=== PATIENT | male | born 1945 | race Caucasian/White ===

== ENCOUNTER 2024-04-29 12:29 | Emergency (ER) | payer MEDICARE, SELFPAY ==
--- NOTE | ~2024-04-29 | XR_ITS ---
EXAMINATION: XR LUMBOSACRAL SPINE CLINICAL INFORMATION: Low back pain COMPARISON: None available. TECHNIQUE: Three views of the lumbosacral spine. FINDINGS: Spondylitic change seen at the lumbosacral junction with what appears to be a chronic compression deformity T11. Anterior spurring seen throughout the lumbar spine and there is advanced disc space narrowing L5-S1. Moderate facet degenerative change noted L4-S1. No fracture or destructive process. XR/XR lumbar spine 2-3V IMPRESSION: Multilevel degenerative changes observed but no acute findings.
--- NOTE | ~2024-04-29 | XR_ITS ---
EXAMINATION: XR HIP, RIGHT CLINICAL INFORMATION: Right-sided hip pain COMPARISON: None available. TECHNIQUE: Two views of the right hip. FINDINGS: No fracture, dislocation or destructive process. No erosive change. Mild superior joint space narrowing noted. Vascular calcifications are observed. There is moderate to advanced degenerative change incidentally seen in the left hip, particularly the superior joint space. There is degenerative change in the lower lumbar spine and overlying the right and left SI joint. XR/XR hip RT w PEL1V IMPRESSION: Degenerative changes are seen in the hips left greater than right. No fracture or acute findings.
[2024-04-29 12:36] VITALS: BP 136/88; BP 164/83; PULSE 81; PULSE 93; RESP 18; TEMP 37.2; O2SAT 97; O2SAT 98; BMI 35.5
--- NOTE | 2024-04-29 12:42 | ED_ITS ---
HPI - General Adult General Chief complaint: Back Pain/Injury Stated complaint: RLE PAIN,H/O SCIATICA PER EMS Time Seen by Provider: 04/29/24 12:41 Source: patient Mode of arrival: EMS Limitations: no limitations History of Present Illness ED Provider: Florence Dueñas PA-C HPI narrative: 78-year-old male with history of sciatica presents for evaluation of right-sided low back pain radiating down the right thigh since last night. Patient was walking up the stairs when he began feeling a shooting pain from his right low back down his right thigh. Denies injury. Pain is so bad he cannot walk and could not sleep last night so he came here. Currently takes a muscle relaxer for his chronic sciatica, states that tylenol, ibuprofen, gabapentin have not worked for him in the past. Denies bowel or bladder incontinence. Denies numbness or tingling. MD complaint: Right hip/thigh pain Onset (ago): hour(s) Location: back and right Radiation: distal (thigh) Quality: sharp Pain Consistency: constant Relieving factors: none Exacerbating factors: movement Associated symptoms: denies other symptoms Treatments prior to arrival: none Related Data Home Medications ?Medication ?Instructions ?Recorded ?Confirmed atorvastatin 10 mg tablet 10 mg PO DAILY 04/29/24 04/29/24 lisinopril 5 mg tablet 5 mg PO DAILY 04/29/24 04/29/24 mirtazapine 15 mg tablet 15 mg PO BEDTIME 04/29/24 04/29/24 Allergies Allergy/AdvReac Type Severity Reaction Status Date / Time Fish Containing Products Allergy Severe ANAPHYLAXIS Verified 04/29/24 12:42 TO SWORDFISH shrimp Allergy Severe FACIAL Verified 04/29/24 12:42 SWELLING Penicillins [PENICILLINS] Allergy Unknown UNKNOWN Verified 04/29/24 12:42 Review of Systems 2 Constitutional: Constitutional: Reports no additional constitutional complaints, Denies chills, Denies fever(s) and Denies night sweats Eyes: Eyes: Reports no additional eye complaints, Denies blurry vision, Denies change in vision, Denies diplopia, Denies eye discharge, Denies loss of vision and Denies eye pain ENT: Denies dizziness Cardiovascular: Cardiovascular: Reports no additional cardiovascular complaints, Denies chest pain, Denies lightheadedness, Denies Loss of Consciousness and Denies dyspnea Respiratory: Respiratory: Reports no additional respiratory complaints and Denies dyspnea Gastrointestinal: Gastrointestinal: Reports no additional gastrointestinal complaints, Denies abdominal pain, Denies melena, Denies hematochezia, Denies change in bowel habits and Denies change in stool character Genitourinary: Genitourinary: Reports no additional male genitourinary complaints, Denies hematuria, Denies oliguria, Denies difficulty urinating, Denies dysuria, Denies urinary frequency, Denies urinary hesitancy, Denies urinary incontinence and Denies urinary urgency Musculoskeletal: Musculoskeletal: Reports as per HPI, Denies numbness, Reports radiating pain into limb and Denies tingling Neurologic: Denies dizziness, Denies loss of vision, Denies numbness and Denies tingling Psychiatric: Psychiatric: Reports no additional psychiatric complaints Endocrine: Endocrine: Reports no additional endocrine complaints Hematologic/Lymphatic: Hematologic/Lymphatic: Reports no additional hematologic/lymphatic complaints Allergic/Immunologic: Allergic/Immunologic: Reports no additional allergic/immunologic complaints PMFSH Past Medical History Attestation statement: The following information was validated with the patient. Source: old records reviewed and nursing notes reviewed Social History Social History Advance Directives: No Advance Directives Information Provided: Yes Do you have a plan to hurt others: No Plan Physical Exam ED Vital Signs: Vital Signs - 24 hr 04/29/24 16:57 04/29/24 19:17 04/29/24 19:40 Temperature 98.6 F 98.7 F 98.8 F Pulse Rate 64 81 88 Respiratory Rate 20 20 19 Blood Pressure 131/86 157/85 H 146/82 H Pulse Oximetry 98 95 95 Oxygen Delivery Method Room Air Room Air Room Air 04/30/24 06:20 04/30/24 09:01 Temperature 98.6 F Pulse Rate 68 Respiratory Rate 16 Blood Pressure 96/51 L 127/89 Pulse Oximetry 95 Oxygen Delivery Method Room Air BMI result Body Mass Index 35.5 Const General: cooperative, no acute distress, alert and awake Nutritional Appearance: well nourished Orientation/consciousness: patient oriented x3 Limitations: no limitations HENMT Head: Yes normal to inspection and Yes atraumatic Ears: hearing grossly normal bilaterally and external ears normal General nose exam: Normal external nose present, no nasal discharge noted and no epistaxis Face and sinus: Yes normal facial exam, No abrasion and No laceration Mouth: Normal oral and palatal mucosa present, no drooling and no muffled voice Eyes General: appearance normal, both eyes and all related structures Periorbital: periorbital findings normal Eyelids: Yes eyelids normal Conjunctivae: conjunctivae normal Pupils: Equal, round and reactive pupils present EOM: EOMs intact bilaterally Neck Neck: Yes normal visual inspection, Yes full ROM and Yes no lymphadenopathy Chest Chest palpation & inspection: normal inspection of the chest Resp Effort & Inspection: normal respiratory effort and able to speak in complete sentences GI Inspection: Yes normal to inspection General: Yes no CVA tenderness Back/Spine/Pelvis Other: pain with straightening of back and ambulation Back: no CVA tenderness Cervical Spine: normal cervical lordosis and cervical ROM normal Thoracic/Lumbar Spine: thoraco-lumbar ROM normal Neuro General: patient oriented x3 and moves all extremities Cranial nerves: Yes Equal, round and reactive pupils present Cognition (Neuro): normal cognition Motor exam (neuro): 5/5 motor strength present throughout Sensory Exam: Normal double simultaneous stimulation for sensation Coordination: [id number] test normal Extrem General: Yes normal to inspection, Yes full ROM and Yes capillary refill normal Psych Appearance: grossly normal Mental Status: mental status grossly normal Affect: normal affect Attitude: cooperative Thought process: Normal thought process present Thought content: Normal thought content present Insight: Good insight present (Psych) Course Course Course Narrative: 04/30/2024 0630 ---> Physician observation continues. Patient continues to be followed by case management and awaits physical therapy evaluation. 04/30/2024 1255 ---> Case management spoke with the patient. Together, they decided that the patient will go home and follow up with pain management and outpatient physical therapy. I will provide the patient with a pain management referral and his PCP will have to provide a PT referral. Observation care revealed the the patient does not meet medical necessity for hospitalization. Final disposition discussed with the patient [and the patient's] who verbalized understanding and agreement. Patient completed observation care at [time], total time spent in observation care was 21 hours and 6 minutes. Medications Administered Generic Name Dose Route Start Last Admin Trade Name Freq PRN Reason Stop Dose Admin Atorvastatin Calcium 10 mg 04/30/24 09:00 04/30/24 09:02 Atorvastatin Calcium 10 Mg Tablet PO 10 mg DAILY DEVANG Administration Lisinopril 5 mg 04/30/24 09:00 04/30/24 09:01 Lisinopril 5 Mg Tablet PO 5 mg DAILY DEVANG Administration Protocol Mirtazapine 15 mg 04/29/24 21:00 04/29/24 19:48 Mirtazapine 15 Mg Tablet PO 15 mg BEDTIME DEVANG Administration Discontinued Medications Generic Name Dose Route Start Last Admin Trade Name Hetal RANDHAWA Reason Stop Dose Admin Diazepam 2.5 mg 04/29/24 12:51 04/29/24 14:49 Diazepam 10 Mg/2 Ml Cartridge IVPUSH 04/29/24 12:52 2.5 mg STAT STA Administration Ketorolac Tromethamine 15 mg 04/29/24 12:52 04/29/24 14:49 Ketorolac Tromethamine 15 Mg/Ml Vial IVPUSH 04/29/24 12:53 15 mg ONCE ONE Administration Methylprednisolone Sodium Succinate 60 mg 04/29/24 15:35 04/29/24 15:39 Methylprednisolone Sod Succ 125 Mg/2 Ml Vial IVPUSH 04/29/24 15:36 60 mg ONCE ONE Administration Medical Decision Making Medical Decision Making MDM Narrative: Patient is a 78 year old assigned male at with a history of chronic sciatic back pain presenting to the emergency department today with an episode of acute on chronic back pain. Patient's physical exam was as noted in the physical exam portion of this note. Patient's blood work was unremarkable. Patient's low back x-ray showed no acute process but did show degenerative changes. I explained my physical exam findings as well as all test results to the patient. I answered all questions asked by the patient. Patient received IV pain medication however, it did not help him be able to ambulate. Given the patient lives on a second story and is having trouble ambulating, will place a case management consult to help coordinate a safe discharge plan. Patient verbalized understanding and agreement with this plan. Differential Diagnosis Differential Diagnoses: The differential diagnosis associated with the presentation includes Chronic back pain Acute on chronic back pain Right sided sciatica Admission/Observation Consideration of admission/observation: Escalation of care including admission/observation considered Patient would have been admitted to the hospital had his work up had any findings where hospital admission was appropriate and his clinical presentation warranted hospital admission. Lab Data [facility] Lab Attestation statement: I reviewed the patient's lab results. My interpretation of these results are in the MDM Rationale portion of this note. 04/29/24 13:11 04/29/24 13:11 Labs: Lab Results 04/29/24 Range/Units 13:11 WBC 4.8 (4.8-10.8) X10*3/uL RBC 4.58 L (4.60-5.80) X10*6/uL Hgb 13.6 L (14.0-18.0) g/dl Hct 40.2 L (42.0-52.0) % MCV 87.8 (80.0-98.0) fL MCH 29.7 (27.0-33.0) pg MCHC 33.8 (31.0-36.0) g/dl RDW 13.1 (11.0-16.0) % Plt Count 189 (160-400) X10*3/uL MPV 9.2 L (9.4-12.4) fL Immature Gran % (Auto) 0.2 (0.0-0.4) % Neut % (Auto) 61.4 (45-73) % Lymph % (Auto) 23.3 (20-40) % Swisher % (Auto) 11.2 H (2-11) % Eos % (Auto) 3.3 (0-4) % Baso % (Auto) 0.6 (0-2) % Lymph # (Auto) 1.1 L (1.2-4.9) X10*3/uL Swisher # (Auto) 0.5 (0.1-1.2) X10*3/uL Eos # (Auto) 0.2 (0.0-0.4) X10*3/uL Baso # (Auto) 0.0 (0.0-0.2) X10*3/uL Abs Immat Gran (auto) 0.01 (0.00-0.03) X10*3/uL Absolute Neuts (auto) 3.0 (2.0-8.3) x10*3/uL Absolute Nucleated RBC 0.000 (0.0-0.012) X10*3/uL Nucleated RBC % (auto) 0.0 (0.0-0.2) /100WBC Sodium 139 (135-145) mmol/L Potassium 4.2 (3.3-5.1) mmol/L Chloride 106 (96-108) mmol/L Carbon Dioxide 25 (22-29) mmol/L Anion Gap 12 (12-20) BUN 8 L (9-16) mg/dL Creatinine 0.83 (0.5-1.4) mg/dL Estim Creat Clear Calc 82.3 Estimated GFR > 60 Random Glucose 97 (60-115) mg/dL Calcium 9.0 (8.4-10.2) mg/dL Total Bilirubin 0.7 (0.0-1.0) mg/dL AST 18 (5-37) U/L ALT 34 (0-40) U/L Alkaline Phosphatase 66 (39-117) U/L Total Protein 6.5 (6.5-8.0) g/dL Albumin 3.6 (3.5-5.0) g/dL Independent Interpretation I performed an independent interpretation of an: Plain X-Ray Interpretation: My interpretation is in agreement with the radiologist's impression of this imaging study. - EXAMINATION: XR LUMBOSACRAL SPINE CLINICAL INFORMATION: Low back pain COMPARISON: None available. TECHNIQUE: Three views of the lumbosacral spine. FINDINGS: Spondylitic change seen at the lumbosacral junction with what appears to be a chronic compression deformity T11. Anterior spurring seen throughout the lumbar spine and there is advanced disc space narrowing L5-S1. Moderate facet degenerative change noted L4-S1. No fracture or destructive process. XR/XR lumbar spine 2-3V IMPRESSION: Multilevel degenerative changes observed but no acute findings. Dictated By: Josiah Sharp MD Signed By: Electronically signed by Josiah Sharp MD 04/29/24 1449 - EXAMINATION: XR HIP, RIGHT CLINICAL INFORMATION: Right-sided hip pain COMPARISON: None available. TECHNIQUE: Two views of the right hip. FINDINGS: No fracture, dislocation or destructive process. No erosive change. Mild superior joint space narrowing noted. Vascular calcifications are observed. There is moderate to advanced degenerative change incidentally seen in the left hip, particularly the superior joint space. There is degenerative change in the lower lumbar spine and overlying the right and left SI joint. XR/XR hip RT w PEL1V IMPRESSION: Degenerative changes are seen in the hips left greater than right. No fracture or acute findings. Dictated By: Josiah Sharp MD Signed By: Electronically signed by Josaih Sharp MD 04/29/24 1448 Radiology Impression Discussion of test interpretation with radiology: I have reviewed the radiologist's reading. Independent Historian Clinical information obtained from an independent historian. History obtained from or confirmed by: EMS (EMS provided additional history and confirmed the history provided by the patient.) Critical Care Time Critical Care Time Critical Care Time: Yes Total Critical Care Time: 34 Attestation: I spent 34 minutes of Critical Care Time with this patient. This does not include time spent on separately reported billable procedures. Discharge Plan Discharge Clinical Impression: Sciatica, Difficulty in walking Patient Disposition: Still a Patient Prescriptions: No Action atorvastatin 10 mg tablet 10 mg PO DAILY lisinopril 5 mg tablet 5 mg PO DAILY mirtazapine 15 mg tablet 15 mg PO BEDTIME Print Language: Tamazight
[2024-04-29 13:15] LABS: Basophils Percent Auto 0.6 % (0-2); Eosinophils Absolute Auto 0.2 X10*3/uL (0.0-0.4); Eosinophils Percent Auto 3.3 % (0-4); Hematocrit 40.2 % (42.0-52.0); Hemoglobin 13.6 g/dl (14.0-18.0); Imm Gran Abs Auto 0.01 X10*3/uL (0.00-0.03); Imm Gran Pct Auto 0.2 % (0.0-0.4); Lymphocytes Absolute Auto 1.1 X10*3/uL (1.2-4.9); Lymphocytes Percent Auto 23.3 % (20-40); MANUAL DIFF FLAG NO; Mean Corpuscular HGB Conc 33.8 g/dl (31.0-36.0); Mean Corpuscular Hemoglobin 29.7 pg (27.0-33.0); Mean Corpuscular Volume 87.8 fL (80.0-98.0); Mean Platelet Volume 9.2 fL (9.4-12.4); Monocytes Absolute Auto 0.5 X10*3/uL (0.1-1.2); Monocytes Percent Auto 11.2 % (2-11); Neutrophils Percent Auto 61.4 % (45-73); Platelet Count 189 X10*3/uL (160-400); Red Blood Count 4.58 X10*6/uL (4.60-5.80); Red Cell Distribution Width 13.1 % (11.0-16.0); White Blood Count 4.8 X10*3/uL (4.8-10.8)
[2024-04-29 13:32] LABS: Alanine Aminotransferase 34 U/L (0-40); Albumin Level 3.6 g/dL (3.5-5.0); Alkaline Phosphatase 66 U/L (39-117); Anion Gap 12 (12-20); Aspartate Amino Transferase 18 U/L (5-37); Bilirubin Total 0.7 mg/dL (0.0-1.0); Blood Urea Nitrogen 8 mg/dL (9-16); Carbon Dioxide 25 mmol/L (22-29); Chloride 106 mmol/L (96-108); Creatinine Clr Calc Pharmacy 82.3; Estimated Glomerular Filt Rate > 60; Glucose Random 97 mg/dL (60-115); Potassium 4.2 mmol/L (3.3-5.1); Sodium 139 mmol/L (135-145); Total Protein 6.5 g/dL (6.5-8.0)
[2024-04-29] MEDS: Ketorolac Tromethamine 15 MG/ML VIAL IVPUSH (14:49)
[2024-04-29] MEDS: diazePAM 10 MG/2 ML CARTRIDGE 2.5 MG IVPUSH (14:49)
[2024-04-29] MEDS: methylPREDNISolone Sod Succ 125 MG/2 ML VIAL 60 MG IVPUSH (15:39)
[2024-04-29 16:57] VITALS: BP 131/86; PULSE 64; RESP 20; TEMP 37; O2SAT 98
--- NOTE | 2024-04-29 18:53 | PC.NURSE ---
RN-RN report given to Overflow, plan to transport at 1915.
--- NOTE | 2024-04-29 18:59 | PC.NURSE ---
med rec completed, provider notified.
[2024-04-29 19:17] VITALS: BP 157/85; PULSE 81; RESP 20; TEMP 37.1; O2SAT 95
[2024-04-29 19:40] VITALS: BP 146/82; PULSE 88; RESP 19; TEMP 37.1; O2SAT 95
[2024-04-29] MEDS: Mirtazapine 15 MG TABLET PO (19:48)
--- NOTE | 2024-04-29 21:19 | PC.NURSE ---
Patient transferred from main ed to overflow bed 6. Patient is alert and oriented x4, reports some discomfort in right lower back and right hip, medicated for pain prior to transfer. Patient able to move all extremities. Vital signs stable, lungs clear. No additional complaints at this time, call banegas within reach.
--- NOTE | 2024-04-29 21:44 | MHC.CM.ED ---
CM met with patient at the request of Florence GRAY. Pt has a history of Sciatica and developed severe pain last night. Patient states he cannot walk without pain. Pt lives with his son. Does not use any DME/services. PCP was verified. Pt still drives and is independent. Pt is interested in pain management referral. Pt is agreeable to PT evaluation. Pt is not agreeable to STR. Pt is agreeable to staying overnight. No referrals placed as patient is not agreeable to STR at this time. CM will follow for discharge planning. Florence GRAY aware that patient would like a pain management referral and is not intersted in STR.
[2024-04-30 06:20] VITALS: BP 96/51; PULSE 68; RESP 16; TEMP 37; O2SAT 95
--- NOTE | 2024-04-30 06:53 | PC.NURSE ---
dmitry Ax4, reports no pain, slept well through the night. no distress at this time.
[2024-04-30 09:01] VITALS: BP 127/89
[2024-04-30] MEDS: lisinopriL 5 MG TABLET PO (09:01)
[2024-04-30] MEDS: Atorvastatin Calcium 10 MG TABLET PO (09:02)
--- NOTE | 2024-04-30 13:04 | MHC.CM.ED ---
Patient remains in ER overflow. Physical therapy eval completed. Outpatient physical therapy is recommended. PCP's office will be asked to refer to outpatient physical therapy. Patient has transportation home. Tiffany ANTONIO and Florence GRAY aware. Continue to monitor for d/c needs.
[2024-04-30 14:47] VITALS: BP 125/87; PULSE 77; RESP 14; TEMP 36.8
== END 2024-04-30 14:49 | disposition home or self-care (01) ==
PROVIDERS: Physician Assistant Medical; Emergency Provider Emergency Medicine; PCP Internal Medicine
DX: M54.30 Sciatica, unspecified side (principal); R26.81 Unsteadiness on feet; M54.50 Low back pain, unspecified; M25.551 Pain in right hip
CPT/HCPCS: 36415; 72100; 73502; 80053; 85025; 96374; 96375; 97161; 99284; J1885; J2919; J3360

== ENCOUNTER 2024-05-06 11:25 | Emergency (ER) | payer MEDICARE, SELFPAY ==
[2024-05-06 11:45] VITALS: BP 114/90; BP 141/91; PULSE 81; PULSE 92; RESP 20; TEMP 36.3; O2SAT 95; O2SAT 98; BMI 33.0
--- NOTE | 2024-05-06 11:49 | ED.GENADULT ---
HPI - General Adult General Chief complaint: General Medical Stated complaint: SCIATIC PAIN Time Seen by Provider: 05/06/24 13:35 Source: patient and EMS Mode of arrival: EMS Limitations: no limitations History of Present Illness ED Provider: Florence Dueñas PA-C HPI narrative: Patient is a 78 year old assigned male at with a history of sciatica presenting to the emergency department today with right sided low back pain. Patient states that he was seen here on 04/29/2024 for the same issue and had been doing the exercises like he was supposed to when he got out of bed and began another flare. Patient states that he has not gotten ahold of the pain specialist as directed. Patient denies any dizziness, lightheadedness, abdominal pain, nausea, vomiting, fever, chills, blurry vision, double vision, loss of vision, chest pain, difficulty breathing, shortness of breath, night sweats, pain with urination, increased urinary frequency, increased urinary urgency, blood in his urine or stool, syncope or a near syncopal episode, recent trauma or falls, bowel incontinence, bladder incontinence, or any other complaints at this time. Onset (ago): hour(s) Location: back Radiation: extremity and distal Severity: mild Severity scale (1-10): 4 Quality: aching and dull Pain Consistency: constant Relieving factors: none Exacerbating factors: movement Associated symptoms: denies other symptoms Treatments prior to arrival: none Related Data Home Medications ?Medication ?Instructions ?Recorded ?Confirmed atorvastatin 10 mg tablet 10 mg PO DAILY 04/29/24 04/29/24 lisinopril 5 mg tablet 5 mg PO DAILY 04/29/24 04/29/24 mirtazapine 15 mg tablet 15 mg PO BEDTIME 04/29/24 04/29/24 Previous Rx's ?Medication ?Instructions ?Recorded cyclobenzaprine 5 mg tablet 5 mg PO TID PRN pain 7 days #21 05/06/24 tabs naproxen 500 mg tablet 500 mg PO BID 7 days #14 tabs 05/06/24 Allergies Allergy/AdvReac Type Severity Reaction Status Date / Time Fish Containing Products Allergy Severe ANAPHYLAXIS Verified 05/06/24 11:49 TO SWORDFISH shrimp Allergy Severe FACIAL Verified 05/06/24 11:49 SWELLING Penicillins [PENICILLINS] Allergy Unknown UNKNOWN Verified 05/06/24 11:49 Review of Systems Constitutional: Constitutional: Reports no additional constitutional complaints, Denies chills, Denies fever(s) and Denies night sweats Eyes: Eyes: Reports no additional eye complaints, Denies blurry vision, Denies change in vision, Denies diplopia, Denies eye discharge, Denies loss of vision and Denies eye pain ENT: Denies dizziness Cardiovascular: Cardiovascular: Reports no additional cardiovascular complaints, Denies chest pain, Denies lightheadedness, Denies Loss of Consciousness and Denies dyspnea Respiratory: Respiratory: Reports no additional respiratory complaints and Denies dyspnea Gastrointestinal: Gastrointestinal: Reports no additional gastrointestinal complaints, Denies abdominal pain, Denies melena, Denies hematochezia, Denies change in bowel habits and Denies change in stool character Genitourinary: Genitourinary: Reports no additional male genitourinary complaints, Denies hematuria, Denies oliguria, Denies difficulty urinating, Denies dysuria, Denies urinary frequency, Denies urinary hesitancy, Denies urinary incontinence and Denies urinary urgency Musculoskeletal: Musculoskeletal: Reports no additional musculoskeletal complaints, Reports back pain, Denies numbness and Denies tingling Neurologic: Denies dizziness, Denies loss of vision, Denies numbness and Denies tingling Psychiatric: Psychiatric: Reports no additional psychiatric complaints Endocrine: Endocrine: Reports no additional endocrine complaints Hematologic/Lymphatic: Hematologic/Lymphatic: Reports no additional hematologic/lymphatic complaints Allergic/Immunologic: Allergic/Immunologic: Reports no additional allergic/immunologic complaints PMFSH Past Medical History Attestation statement: The following information was validated with the patient. Source: old records reviewed and nursing notes reviewed Social History Social History Advance Directives: No Advance Directives Information Provided: No Physical Exam ED Vital Signs: Vital Signs - 24 hr 05/06/24 11:45 05/06/24 14:23 Temperature 97.4 F 97.8 F Pulse Rate 81 78 Respiratory Rate 20 18 Blood Pressure 141/91 H 153/90 H Pulse Oximetry 95 98 Oxygen Delivery Method Room Air Room Air BMI result Body Mass Index 33.0 Const General: cooperative, no acute distress, alert and awake Nutritional Appearance: well nourished Orientation/consciousness: patient oriented x3 Limitations: no limitations HENMT Head: Yes normal to inspection and Yes atraumatic Ears: hearing grossly normal bilaterally and external ears normal General nose exam: Normal external nose present, no nasal discharge noted and no epistaxis Face and sinus: Yes normal facial exam, No abrasion and No laceration Mouth: Normal oral and palatal mucosa present, no drooling and no muffled voice Eyes General: appearance normal, both eyes and all related structures Periorbital: periorbital findings normal Eyelids: Yes eyelids normal Conjunctivae: conjunctivae normal Pupils: Equal, round and reactive pupils present EOM: EOMs intact bilaterally Neck Neck: Yes normal visual inspection, Yes full ROM and Yes no lymphadenopathy Chest Chest palpation & inspection: normal inspection of the chest Resp Effort & Inspection: normal respiratory effort and able to speak in complete sentences GI Inspection: Yes normal to inspection General: Yes no CVA tenderness Back/Spine/Pelvis Back: no CVA tenderness Cervical Spine: normal cervical lordosis and cervical ROM normal Thoracic/Lumbar Spine: thoracic and lumbar spine normal to inspection and thoraco-lumbar ROM normal Pelvis: no pain with anterior-posterior compression Neuro General: patient oriented x3 and moves all extremities Cranial nerves: Yes Equal, round and reactive pupils present Cognition (Neuro): normal cognition Extrem General: Yes normal to inspection, Yes full ROM and Yes capillary refill normal Psych Appearance: grossly normal Mental Status: mental status grossly normal Affect: normal affect Attitude: cooperative Thought process: Normal thought process present Thought content: Normal thought content present Insight: Good insight present (Psych) Course Course Course Narrative: This is an RME done by MARINA Gutiérrez: Additional HPI, ROS, PE not included below will be deferred to primary provider. 78 year old male presents w/ right sided aching & shooting pain lower back pain started on 04/30/2024 has history of sciatica but has never been this bad. Reports its a shotting pain down his entire RLE. No saddle anesthesias,numbness, tingling, urine/bowel incontinence/ retention. Appearance: Alert.? Oriented X3.? No acute cardiopulmonary distress distress.? Head: Normocephalic, atraumatic, no step-offs or deformities Neck: Normal inspection.? Neck supple.? CVS: Pulses normal.? Respiratory: No respiratory distress.? Abdomen: Soft and nontender.? Skin: ? Normal skin color. Extremities: 5/5 strength to bilateral upper and lower extremities Back: Painful rom to back, in wheelchair becuase he feels like he cant walk Neuro: Oriented X 3.? No motor deficit.? No sensory deficit. No saddle anesthesias Medications Administered Discontinued Medications Generic Name Dose Route Start Last Admin Trade Name Hetal PRN Reason Stop Dose Admin Cyclobenzaprine HCl 5 mg 05/06/24 14:03 05/06/24 14:22 Cyclobenzaprine Hcl 5 Mg Tablet PO 05/06/24 14:04 5 mg ONCE ONE Administration Ketorolac Tromethamine 15 mg 05/06/24 14:03 05/06/24 14:22 Ketorolac Tromethamine 15 Mg/Ml Vial IM 05/06/24 14:04 15 mg ONCE ONE Administration Lidocaine 1 patch 05/06/24 11:49 05/06/24 13:58 Lidocaine 4 % Patch Adh..Patch TRANSDERMA 05/06/24 11:50 1 patch ONCE ONE Administration Protocol Methylprednisolone Sodium Succinate 60 mg 05/06/24 14:03 05/06/24 14:22 Methylprednisolone Sod Succ 125 Mg/2 Ml Vial IM 05/06/24 14:04 60 mg ONCE ONE Administration Medical Decision Making Medical Decision Making MDM Narrative: Patient is a 78 year old assigned male at with a history of sciatica presenting to the emergency department today with right sided low back pain. Patient's physical exam was unremarkable. I explained my physical exam findings to the patient. I answered all questions asked by the patient. Patient received pain medication which he stated helped his symptoms. I stressed the importance of the patient taking his medication as directed (either prescribed or as the over the counter packaging recommends). I stressed the importance of the patient following up with his primary care provider and a pain specialist. I stressed the importance of the patient returning to the emergency department immediately if his symptoms were to worsen or if he were to develop any dizziness, shortness of breath, difficulty breathing, chest pain, blurry vision, loss of vision, nausea, vomiting, abdominal pain, fever, chills, back pain, or any other complaints. Patient verbalized agreement and understanding with this treatment plan and discharge. Differential Diagnosis Differential Diagnoses: The differential diagnosis associated with the presentation includes Sciatica Acute on chronic back pain Back pain Admission/Observation Consideration of admission/observation: Escalation of care including admission/observation considered Patient would have been admitted to the hospital had his clinical presentation warranted hospital admission. Tests considered The following testing was considered but not selected: I considered obtaining a lumbar x-ray or CT scan however, the patient's current clinical presentation does not warrant it. I discussed this with the patient who verbalized understanding and agreement. Prescription Management I considered prescription management with: Pain Medication (patient prescribed pain medication) Discharge Plan Discharge Clinical Impression: Sciatica Patient Disposition: Home, Self-Care Instructions: Sciatica (ED), Lower Back Exercises (ED) Additional Instructions: Follow up with your primary care provider and a pain specialist. Return to the emergency department immediately if your symptoms worsen or if you develop any dizziness, shortness of breath, difficulty breathing, chest pain, blurry vision, loss of vision, nausea, vomiting, abdominal pain, fever, chills, back pain, or any other complaints. Prescriptions: New cyclobenzaprine 5 mg tablet 5 mg PO TID PRN (Reason: pain) 7 Days Qty: 21 0RF naproxen 500 mg tablet 500 mg PO BID 7 Days Qty: 14 0RF No Action atorvastatin 10 mg tablet 10 mg PO DAILY lisinopril 5 mg tablet 5 mg PO DAILY mirtazapine 15 mg tablet 15 mg PO BEDTIME Ref[place]: [facility] [place] [facility] [place]] (Call to establish and follow up with a pain specialist. ) Sanya Zhang MD [Primary Care Provider] - Interventions: ED Discharge Assessment Last Done: 05/06/24 14:23 Discharge Date/Time: 05/06/24 14:31 Print Language: Kyrgyz
[2024-05-06] MEDS: Lidocaine 4 % Patch ADH..PATCH 1 PATCH TRANSDERMA (13:58)
[2024-05-06] MEDS: Ketorolac Tromethamine 15 MG/ML VIAL IM (14:22)
[2024-05-06] MEDS: Cyclobenzaprine HCl 5 MG TABLET PO (14:22)
[2024-05-06] MEDS: methylPREDNISolone Sod Succ 125 MG/2 ML VIAL 60 MG IM (14:22)
[2024-05-06 14:23] VITALS: BP 153/90; PULSE 78; RESP 18; TEMP 36.6; O2SAT 98
== END 2024-05-06 14:31 | disposition home or self-care (01) ==
PROVIDERS: Emergency Provider Emergency Medicine; PCP Internal Medicine
DX: M54.30 Sciatica, unspecified side (principal); M54.50 Low back pain, unspecified; Z79.899 Other long term (current) drug therapy
CPT/HCPCS: 96372; 99283; 99284; J1885; J2919

== ENCOUNTER 2024-05-23 13:16 | Emergency (ER) | payer MEDICARE, SELFPAY ==
[2024-05-23 13:22] VITALS: BP 138/82; PULSE 88; O2SAT 96
[2024-05-23 13:28] VITALS: BP 130/53; PULSE 82; RESP 18; TEMP 36.8; O2SAT 96; BMI 35.6
[2024-05-23 15:46] VITALS: BP 145/63; PULSE 79; RESP 18; TEMP 36.8; O2SAT 98
--- NOTE | 2024-05-23 16:01 | ED.GENADULT ---
HPI - General Adult General Chief complaint: Back Pain/Injury Stated complaint: SCIATIC PAIN HARD TO WALK Time Seen by Provider: 05/23/24 13:36 Source: patient and EMS Mode of arrival: EMS Limitations: no limitations History of Present Illness ED Provider: DR. Ignacio HPI narrative: 78-year-old male with chronic back pain and right-sided sciatica presented with 1 week of lower back pain radiating down to the right thigh, no urinary incontinence, no stool incontinence, no weakness, no numbness reported by the patient. Patient also woke up this morning with painful rash on the left chest wall. Patient is unable to ambulate because of severe back pain that radiates to the right lower extremities, patient lives home alone and normally fully functional. Related Data Home Medications ?Medication ?Instructions ?Recorded ?Confirmed atorvastatin 10 mg tablet 10 mg PO DAILY 04/29/24 04/29/24 lisinopril 5 mg tablet 5 mg PO DAILY 04/29/24 04/29/24 mirtazapine 15 mg tablet 15 mg PO BEDTIME 04/29/24 04/29/24 Previous Rx's ?Medication ?Instructions ?Recorded cyclobenzaprine 5 mg tablet 5 mg PO TID PRN pain 7 days #21 05/06/24 tabs naproxen 500 mg tablet 500 mg PO BID 7 days #14 tabs 05/06/24 Allergies Allergy/AdvReac Type Severity Reaction Status Date / Time Fish Containing Products Allergy Severe ANAPHYLAXIS Verified 05/23/24 13:30 TO SWORDFISH shrimp Allergy Severe FACIAL Verified 05/06/24 11:49 SWELLING Penicillins [PENICILLINS] Allergy Unknown UNKNOWN Verified 05/06/24 11:49 Review of Systems Review of Systems: All other systems are reviewed and are negative Constitutional: Reports as per HPI and Reports no additional constitutional complaints Eyes: Reports as per HPI and Reports no additional eye complaints Reports system reviewed and no additional complaints, except as documented Cardiovascular: Reports as per HPI and Reports no additional cardiovascular complaints Respiratory: Reports as per HPI and Reports no additional respiratory complaints Gastrointestinal: Reports as per HPI and Reports no additional gastrointestinal complaints Genitourinary: Reports no additional female genitourinary complaints Musculoskeletal: Reports no additional musculoskeletal complaints Skin/Breast: Reports system reviewed and no additional complaints, except as docu Psychiatric: Reports no additional psychiatric complaints Endocrine: Reports no additional endocrine complaints Hematologic/Lymphatic: Reports no additional hematologic/lymphatic complaints Allergic/Immunologic: Reports no additional allergic/immunologic complaints Reports system reviewed and no additional complaints, except as documented and Reports Abnormal speech present [facility] Social History Social History Advance Directives: Yes Advance Directives Information Provided: No Advance Directives on File: No Physical Exam ED Vital Signs: Vital Signs - 24 hr 05/23/24 13:28 05/23/24 15:46 Temperature 98.3 F 98.3 F Pulse Rate 82 79 Respiratory Rate 18 18 Blood Pressure 130/53 L 145/63 H Pulse Oximetry 96 98 Oxygen Delivery Method Room Air Room Air BMI result Body Mass Index 35.6 Vital signs have been reviewed and appear to be correct. Blood pressure elevated. Heart rate normal. Respiratory rate normal. Temperature normal. Oxygen saturation normal. Appearance: Alert. Oriented X3. No acute distress. Head: Normal external exam. Normocephalic. Atraumatic. No Garcia signs noted. No raccoon eyes noted Eyes: PERRLA. EOMI. Conjunctiva and sclera normal. Eyelids normal. ENT: TM's Normal. Pharynx normal. Uvula midline. Moist mucous membranes. No trismus noted. No drooling noted. No muffled voice noted. Neck: Normal inspection. Neck supple. FROM. No adenopathy. Thyroid Normal. No meningeal signs. No neck mass noted. CVS: Normal heart rate and rhythm. Heart sound normal. No murmurs noted. Pulses normal throughout. Respiratory: No respiratory distress. Painless inspiration. Breath sounds normal. No wheezes/rales/rhonchi noted. Chest nontender. No accessory muscle usage noted or decreased air movement noted. Abdomen: Soft and nontender. Bowel sounds normal in all 4 quadrants. No distention noted. No organomegaly noted. No visible injury noted. Back: No CVA tenderness. Full range of motion noted. Skin: Skin warm and dry. Normal skin color. Normal skin turgor. No rashes/lesions/lacerations noted. Extremities: No lower extremity edema. Extremities exhibit normal range of motion. Extremities nontender. Neuro: Oriented X 3. Cranial nerve exam: II-XII are grossly intact No motor deficit. No sensory deficit. Reflexes normal. Course Reevaluation(s) Reevaluation #1: Back pain and right sciatica no urinary or stool incontinence. Had a back x-ray done on 04/29 showed multilevel degenerative change without acute findings. Acute shingles to the left chest wall will start the patient on Valtrex and prednisone. Time: 16:08 Reevaluation #2: severe back pain radiates to the right leg, and left chest wall shingles, the patient was evaluated by Dr. Gutierrez and Dr. Fay disagreed on admitting the patient, will continue physician observation in the ED for PT evaluation and case management with possible short-term facility. Time: 16:19 Medical Decision Making Differential Diagnosis Differential Diagnoses: The differential diagnosis associated with the presentation includes ( [place], sciatica, degenerative lumbar spine disease, electrolyte derangement, severe anemia.) Admission/Observation Consideration of admission/observation: Escalation of care including admission/observation considered Consult Healthcare Provider Management of the patient was discussed with: Hospitalist ( Dr. Gutierrez) Lab Data MDM Lab Attestation statement: I reviewed the patient's lab results. 05/23/24 15:59 05/23/24 15:59 Labs: Lab Results 05/23/24 Range/Units 15:59 WBC 5.5 (4.8-10.8) X10*3/uL RBC 4.75 (4.60-5.80) X10*6/uL Hgb 13.9 L (14.0-18.0) g/dl Hct 42.3 (42.0-52.0) % MCV 89.1 (80.0-98.0) fL MCH 29.3 (27.0-33.0) pg MCHC 32.9 (31.0-36.0) g/dl RDW 13.1 (11.0-16.0) % Plt Count 153 L (160-400) X10*3/uL MPV 10.1 (9.4-12.4) fL Immature Gran % (Auto) 0.4 (0.0-0.4) % Neut % (Auto) 64.0 (45-73) % Lymph % (Auto) 17.9 L (20-40) % Barron % (Auto) 12.6 H (2-11) % Eos % (Auto) 4.4 H (0-4) % Baso % (Auto) 0.7 (0-2) % Lymph # (Auto) 1.0 L (1.2-4.9) X10*3/uL Barron # (Auto) 0.7 (0.1-1.2) X10*3/uL Eos # (Auto) 0.2 (0.0-0.4) X10*3/uL Baso # (Auto) 0.0 (0.0-0.2) X10*3/uL Abs Immat Gran (auto) 0.02 (0.00-0.03) X10*3/uL Absolute Neuts (auto) 3.5 (2.0-8.3) x10*3/uL Absolute Nucleated RBC 0.000 (0.0-0.012) X10*3/uL Nucleated RBC % (auto) 0.0 (0.0-0.2) /100WBC Smear Tech's Comments VERIFIED Discharge Plan Discharge Clinical Impression: Sciatica, Acute herpes zoster neuropathy Patient Disposition: Still a Patient Prescriptions: No Action atorvastatin 10 mg tablet 10 mg PO DAILY lisinopril 5 mg tablet 5 mg PO DAILY mirtazapine 15 mg tablet 15 mg PO BEDTIME cyclobenzaprine 5 mg tablet 5 mg PO TID PRN (Reason: pain) 7 Days Qty: 21 0RF naproxen 500 mg tablet 500 mg PO BID 7 Days Qty: 14 0RF Print Language: Hong Konger
[2024-05-23 16:06] LABS: Basophils Percent Auto 0.7 % (0-2); Imm Gran Abs Auto 0.02 X10*3/uL (0.00-0.03); Imm Gran Pct Auto 0.4 % (0.0-0.4); MANUAL DIFF FLAG SCAN; PLT CLUMP 1; SCAN SMEAR FLAG 1
[2024-05-23 16:08] LABS: Eosinophils Absolute Auto 0.2 X10*3/uL (0.0-0.4); Eosinophils Percent Auto 4.4 % (0-4); Hematocrit 42.3 % (42.0-52.0); Hemoglobin 13.9 g/dl (14.0-18.0); Lymphocytes Percent Auto 17.9 % (20-40); Mean Corpuscular HGB Conc 32.9 g/dl (31.0-36.0); Mean Corpuscular Hemoglobin 29.3 pg (27.0-33.0); Mean Corpuscular Volume 89.1 fL (80.0-98.0); Mean Platelet Volume 10.1 fL (9.4-12.4); Monocytes Absolute Auto 0.7 X10*3/uL (0.1-1.2); Monocytes Percent Auto 12.6 % (2-11); Neutrophils Absolute Auto 3.5 x10*3/uL (2.0-8.3); Red Blood Count 4.75 X10*6/uL (4.60-5.80); Red Cell Distribution Width 13.1 % (11.0-16.0)
[2024-05-23 16:24] LABS: Platelet Count 153 X10*3/uL (160-400); SLIDE REVIEW VERIFIED; White Blood Count 5.5 X10*3/uL (4.8-10.8)
[2024-05-23 16:30] LABS: Alanine Aminotransferase 17 U/L (0-40); Albumin Level 3.6 g/dL (3.5-5.0); Alkaline Phosphatase 64 U/L (39-117); Anion Gap 12 (12-20); Aspartate Amino Transferase 15 U/L (5-37); Bilirubin Direct 0.1 mg/dL (0.0-0.5); Bilirubin Total 0.6 mg/dL (0.0-1.0); Blood Urea Nitrogen 10 mg/dL (9-16); Calcium 8.6 mg/dL (8.4-10.2); Carbon Dioxide 27 mmol/L (22-29); Chloride 103 mmol/L (96-108); Creatinine Clr Calc Pharmacy 74.4; Estimated Glomerular Filt Rate > 60; Glucose Random 110 mg/dL (60-115); Lipase 24 U/L (8-78); Potassium 4.3 mmol/L (3.3-5.1); Sodium 138 mmol/L (135-145); Total Protein 6.5 g/dL (6.5-8.0)
[2024-05-23 16:33] LABS: Troponin-I High Sensitivity 3.1 ng/L (<3.5-35.0)
[2024-05-23] MEDS: valACYclovir HCL 1,000 MG TABLET 1000 MG PO ×2 (16:38→20:58)
[2024-05-23] MEDS: Ketorolac Tromethamine 60 MG/2 ML VIAL IM (16:38)
[2024-05-23] MEDS: HYDROmorphone HCl 1 MG/ML SYRINGE IM (16:38)
[2024-05-23] MEDS: predniSONE 20 MG TABLET 40 MG PO (16:39)
--- NOTE | 2024-05-23 17:31 | PHA.MEDREC ---
Pharmacy Consult ? Medication Reconciliation Pharmacy has completed the medication reconciliation. Spoke with patient to confirm medications. He is no longer taking mirtazepine, cyclobenzaprine, or naproxen.
--- NOTE | 2024-05-23 18:12 | PC.NURSE ---
alert and oriented w/ even and unlabored respirations. reports no pain s/p medication administration. plan for pt/cm in the morning. offering no other complaints, watching tv in room with call banegas in reach
[2024-05-23 19:50] VITALS: BP 105/50; PULSE 74; RESP 16; TEMP 36.8; O2SAT 97
[2024-05-23] MEDS: predniSONE 20 MG TABLET PO (20:58)
--- NOTE | 2024-05-23 20:59 | PC.NURSE ---
this rn assumed care of pt, pt a&ox4, respirations even and unlabored. pt denies pain at this time. pt medicated per mar, tolerated well with water.
--- NOTE | 2024-05-23 21:18 | PC.NURSE ---
pt placed in hospital bed for comfort at this time.
[2024-05-23 21:55] LABS: Appearance Urine Clear; Color Urine Yellow; Glucose Urine UA Negative (Negative); Leukocyte Esterase Urine Negative (Negative); Nitrite Urine Negative (Negative); PH 7.5 (5.0-9.0); Urine Blood Negative (Negative); Urine Ketones Negative (Negative); Urine Protein Negative (Neg-Trace)
[2024-05-24 04:00] VITALS: RESP 14
[2024-05-24 04:55] VITALS: BP 126/61; PULSE 75; RESP 16; TEMP 36.4; O2SAT 95
--- NOTE | 2024-05-24 08:12 | PC.NURSE ---
this RN resumed care of pt at 0645. a&ox4. vss and up to date. pt verbalizing soreness in right hip radiating to RLE. pt requesting to ambulate to see if he's able. ambulation trial performed w/ tech/walker - pt tolerated well. pt ambulated w/ walker w/ no issues. steady gait noted. no sob/wob noted. respirations even/unlabored. pt now resting comfortably in bed in no apparent distress. pt pending PT eval. plan of care ongoing. call banegas placed within reach.
[2024-05-24] MEDS: valACYclovir HCL 1,000 MG TABLET 1000 MG PO (08:35)
[2024-05-24] MEDS: predniSONE 20 MG TABLET PO (08:35)
--- NOTE | 2024-05-24 08:36 | PC.NURSE ---
pt medicated per provider order.
[2024-05-24 08:46] VITALS: BP 134/79; BP 143/87; PULSE 79; TEMP 36.4; O2SAT 96
[2024-05-24] MEDS: lisinopriL 5 MG TABLET PO (08:46)
[2024-05-24 12:39] VITALS: BP 134/79; PULSE 79; RESP 16; TEMP 36.4; O2SAT 96
--- NOTE | 2024-05-24 13:49 | MHC.CM.ED ---
Received consult for assessment of d/c needs: Pt lives with son who can assist if pt has needs. Pt drives, uses a walker on occassion but has no services. Pt states his pain is much better and he was able to ambulate >30 [address] in hallway. Pt denied needing services at this time. Son to transport home
== END 2024-05-24 12:39 | disposition home or self-care (01) ==
PROVIDERS: Emergency Provider Emergency Medicine; PCP Internal Medicine
DX: M54.41 Lumbago with sciatica, right side (principal); B02.8 Zoster with other complications; I10 Essential (primary) hypertension; E78.5 Hyperlipidemia, unspecified; J45.909 Unspecified asthma, uncomplicated; Z79.02 Long term (current) use of antithrombotics/antiplatelets; Z79.899 Other long term (current) drug therapy
CPT/HCPCS: 36415; 80048; 80076; 81003; 83690; 84484; 85025; 96372; 99285; J1170; J1885

== ENCOUNTER 2024-06-05 09:15 | Outpatient (AMB) | payer MEDICARE, SELFPAY ==
--- NOTE | 2024-06-05 09:18 | A.OFFVIS_ITS ---
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 Reports history of ?sciatica ?on the right side starting greater than 5 years ago. Approximately 7 weeks ago he was walking downstairs and developed sudden severe right lower back pain with radiation down the right leg. He was evaluated in the emergency room twice, x-ray revealed degenerative changes. Today complains of 10/10 pain, mostly to the anterior right thigh starting at the right hip. This is a constant pain worse with walking. He develops severe right lower back pain if he stands up straight with shooting pains down the right leg. Has completed several courses of oral steroid medication, muscle relaxers, anti- inflammatory medications and gabapentin all without improvement of his symptoms. Completed 1 month of physical therapy and continues with home exercise Denies history of acupuncture, massage, chiropractor or previous injections. Denies history of surgery to the back. Denies weakness, numbness or tingling of the lower extremity Pain is worse if he attempts to stand up straight, he finds position of comfort with remaining in a forward flexed position. Pain in the right lower back if he attempts to stand up straight that will shoot down his right leg. Denies red flag symptoms including new loss of bowel, bladder or saddle anesthesia. 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 Hyperlipidemia Asthma Hypertension Anxiety Depression Herpes zoster without complication Back pain with sciatica Social History (Updated 06/05/24 @ 09:29 by Dena Montesinos) Alcohol intake: current Alcohol type: beer Comment: 30 beers a week Patient Tobacco Use Status: Former Tobacco user Tobacco use type: Cigar Review of Systems Const All systems reviewed & are unremarkable except as noted in HPI and below Physical Exam Vital Signs: Last Vital Signs Pulse 75 06/05/24 09:25 BP 165/73 H 06/05/24 09:25 Pulse Ox 96 06/05/24 09:25 Oxygen Delivery Method Room Air 06/05/24 09:25 BMI result Body Mass Index 33.8 General: awake, alert, oriented. Answers questions appropriately. Fully engaged in examination. Skin: warm, dry, intact HEENT: Normocephalic. Hearing intact. Cardiac: External chest normal in appearance. Respiratory: No cough, audible wheezing or stridor. Abdomen: without gross distension. MS: No obvious swelling or deformities. Able to transition from sit to stand unassisted. Ambulates with bilaterally normal heel strike and toe off SLR positive on the right Negative footdrop, negative clonus Nontender over bilateral PSIS Nontender over midline lumbar vertebrae or lumbar paraspinal muscles Significantly decreased lumbar range of motion. Position of comfort his flex forward at 20 degrees. Lower back pain when attempting straighten. Unable to extend without significant pain. Nontender for right GTB No pain with internal external rotation of the right hip Valsalva negative Neurological: Oriented to person, place, time and situation. Thought process intact. Ambulates with antalgic gait in slight forward flexed position. Psychiatric: Appropriate mood and affect. Good judgment and insight. Assessment & Plan Assessment & Plan (1) Lumbar radiculopathy: Code(s): M54.16 - Radiculopathy, lumbar region Category: Medical (2) Intractable back pain: Code(s): M54.9 - Dorsalgia, unspecified Category: Medical Plan Osmel is a very pleasant 71-year-old male who presented to the office today for evaluation management of his right lower back pain History, physical exam provocative testing consistent with right lumbar radiculopathy Patient has exhausted conservative therapy including home exercise program, nonsteroidal anti-inflammatory medications, muscle relaxers, heat, ice and multiple rounds of oral steroids. MRI ordered for evaluation Diclofenac 50 mg p.o. twice daily as needed. Patient advised on cautions for use Methocarbamol 500 mg p.o. 3 times daily as needed. No driving while taking this medication, do not take with any alcohol or other [employer] DEVELOPER PROGRAMMER suppressants All questions and concerns answered, patient agrees with the plan. Follow up after MRI, sooner if needed. Orders: Orders MR lumbar spine wo con Today M54.16 - Radiculopathy, lumbar region, M54.9 - Dorsalgia, unspecified Medications: New diclofenac potassium Take with food. Do not take with any other nonsteroidal anti-inflammatory medications. 50 mg PO BID PRN 60 tabs 0RF pain methocarbamol No driving while taking this medication. Do no take with alcohol or other WEB DEVELOPER PROGRAMMER Depressants 500 mg PO TID PRN 90 tabs 0RF muscle spasm Coding Level of Care Code New Pt Level 4 (38930) Diagnoses Lumbar radiculopathy M54.16 Intractable back pain M54.9
[2024-06-05 09:25] VITALS: BP 165/73; PULSE 75; O2SAT 96; BMI 33.8
== END 2024-06-05 09:50 | disposition home or self-care (01) ==
PROVIDERS: PCP Internal Medicine; Visit Provider Registered Nurse Emergency
DX: M54.16 Radiculopathy, lumbar region (principal); M54.9 Dorsalgia, unspecified
CPT/HCPCS: 99204

== ENCOUNTER → 2024-06-05 09:15 | Outpatient (BNVA) | payer MEDICARE, SELFPAY | PROVIDERS: PCP Internal Medicine; Visit Provider Registered Nurse Emergency | DX: M54.16 Radiculopathy, lumbar region (principal); M54.9 Dorsalgia, unspecified | CPT/HCPCS: 99202 ==